=== PATIENT | male | born 1975 | race African-American/Black ===

== ENCOUNTER 2016-05-09 13:59 | Inpatient (IN) ==
[2016-05-09] MEDS ORDERED: INFLUENZA VIRUS VACCINE 0.5 ML SYRINGE IM ONE (15:43)
[2016-05-09] MEDS ORDERED: PNEUMOCOCCAL VACCINE (23 VALENT) 0.5 ML VIAL IM ONE (15:43)
[2016-05-09 17:26] LABS: Basophils % 0.5 % (0.0-0.8); Eosinophils # 0.5 10*3/uL (0.0-0.87); Eosinophils % 6.3 % (0.00-10.9); Hematocrit 44.7 VOL% (42.0-52.0); Immature Granulocytes % 0.2 %; Immature Granulocytes Absolute 0.02 #; Lymphocytes # 2.6 10*3/uL (1.4-4.0); Lymphocytes % 30.8 % (21.2-54.2); Mean Corpuscular HGB Conc 31.3 GM/DL (32-36); Mean Corpuscular Hemoglobin 26 PG (27-34); Mean Corpuscular Volume 82.3 FL (87-102); Mean Platelet Volume 9.6 FL (9.6-12.0); Monocytes # 0.5 10*3/uL (0.11-0.8); Monocytes % 5.6 % (1.7-12.7); Neutrophils # 4.7 10*3/uL (1.4-7.4); Neutrophils % 56.6 % (38.7-73.9); Platelet Count 275 T/CUMM (130-400); Red Blood Count 5.43 MC/CUMM (3.8-5.5); Red Cell Distribution Width 14.6 % (9.3-17.3); White Blood Count 8.4 T/CUMM (4-12)
[2016-05-09] MEDS: BISOPROLOL 5 MG TABLET PO SCH (17:33)
--- NOTE | 2016-05-09 17:35 | XRay Report ---
Exam: XR chest 2V Indication: Cardiomegaly, dyspnea Comparison study: None Findings: Cardiac silhouette is enlarged. There is also mild tortuosity of the descending thoracic aorta. There is no focal consolidation, pneumothorax or pleural effusion identified. Impression: No acute cardiopulmonary process. Cardiomegaly. PROCEDURE INTERPRETED AT [facility] DEPARTMENT OF RADIOLOGY Final Report Signed by: Joni Urbina
[2016-05-09 17:48] LABS: Blood Urea Nitrogen 10 MG/DL (7-18); Calcium 9.3 MG/DL (8.5-10.1); Glucose 86 MG/DL (74-106); Magnesium 1.8 MG/DL (1.8-2.4); Osmolality,Calculated 283.8 MOS/KG (273-304); Potassium 4.1 MMOL/L (3.5-5.1); Sodium 144 MMOL/L (136-145); Troponin I Only < 0.015 NG/ML (0.00-0.045)
[2016-05-09] MEDS: APIXABAN 5 MG TABLET PO SCH (20:25)
[2016-05-09] MEDS ORDERED: LACTULOSE 20 GM/30 ML UDCUP PO PRN (22:53)
[2016-05-09] MEDS ORDERED: MAGNESIUM SULF RIDER 2 GM in PREMIX 1 EACH IV PRN (22:53)
[2016-05-09] MEDS ORDERED: ACETAMINOPHEN 325 MG TABLET PO PRN (22:53)
[2016-05-09] MEDS ORDERED: MORPHINE 2 MG/1 ML SYRINGE IV PRN (22:53)
[2016-05-09] MEDS ORDERED: ZALEPLON 5 MG CAPSULE PO PRN (22:53)
[2016-05-09] MEDS ORDERED: MAGNESIUM SULF RIDER 4 GM in PREMIX 1 EACH IV PRN (22:53)
[2016-05-10 05:28] LABS: Risk Ratio 3.84; VLDL CHOLESTEROL 13.2 MG/DL
--- NOTE | 2016-05-10 08:15 | EKG Report ---
Stationary ECG Study [facility] Test Date: 05/10/2016 8:14:14 AM Pat Name: LOBO VIRGEN Department: Room: 263 Gender: M Account Director: TEREZA : 1975 Requested by: Juan Alonso Order Number: [id number] Reading MD: VANDA IBARRA Intervals [place] Rate: 98 P: 999 OK: 0 QRS: 59 QRSD: 100 T: 189 QT: 331 QTc: 386 Interpretive Statements ATRIAL FIBRILLATION WITH ABERRANT CONDUCTION OR VENTRICULAR PREMATURE COMPLEXES ST DEVIATION AND MODERATE T-WAVE ABNORMALITY, CONSIDER LATERAL ISCHEMIA Electronically Signed On 05-13-16 11:31:24 ACID MIXER by VANDA IBARRA [email or web address]
[2016-05-10] MEDS ORDERED: amLODIPine 10 MG TABLET PO SCH (09:00)
[2016-05-10] MEDS: APIXABAN 5 MG TABLET PO SCH ×2 (09:05→21:28)
[2016-05-10] MEDS: BISOPROLOL 5 MG TABLET PO SCH (09:05)
[2016-05-10] MEDS: DILTIAZEM 60 MG TABLET PO SCH ×3 (11:44→23:52)
--- NOTE | 2016-05-10 20:55 | ECHO Report ---
Dimitri Lopes Exam Date: 05/10/2016 10:38 Referring Physician: Technologist: Juanita SHAFER Age: 40 Ht (in): Wt (lb): Gender: M Exam Location: [facility] Echo Indications: dysnea on excertion, A fib, Cardiomyopathy, Obesity BP: / HR: Rhythm: Sinus Technical Quality: IMPRESSIONS Technically adequate study 2+ left atrial enlargement Borderline LV systolic function with ejection fraction estimated 50% without obvious wall motion abnormality 1-2+ eccentric mitral regurgitation 1+ tricuspid regurgitation with RVSP 21 mmHg plus RAP Rhythm strips suggest atrial fibrillation MEASUREMENTS (Male / Female) Normal Values 2D ECHO LV Diastolic Diameter PLAX 5.3 cm 4.2 - 5.9 / 3.9 - 5.3 cm LV Systolic Diameter PLAX 3.9 cm LV Fractional Shortening PLAX 25.4 % IVS Diastolic Thickness 1.3 cm 0.6 - 1.0 / 0.6 - 0.9 cm LVPW Diastolic Thickness 1.1 cm 0.6 - 1.0 / 0.6 - 0.9 cm RV Internal Dim ED PLAX 4.3 cm Aortic Root Diameter 3.0 cm LA Systolic Diameter LX 4.7 cm 3.0 - 4.0 / 2.7 - 3.8 cm DOPPLER TR Peak Velocity 229.0 cm/s TR Peak Gradient 21.0 mmHg FINDINGS Left Ventricle Mildly increased septal wall thickness. Mild - moderate concentric left ventricular hypertrophy. Left ventricular ejection fraction is estimated at Right Ventricle Moderately increased right ventricular size. Right Atrium Moderately increased right atrial size. Left Atrium Moderately increased left atrial diameter. Mitral Valve Mildly thickened mitral valve with moderate mitral regurgitation. Aortic Valve Aortic valve sclerosis without stenosis or regurgitation. Tricuspid Valve Morphologically normal tricuspid valve. Moderate tricuspid valve regurgitation. Tricuspid regurgitation velocities suggest a PAP of 21.0 mmHg + RAP. Pulmonic Valve Pulmonic valve not well visualized. Pericardium No pericardial effusion. Aorta Normal size aortic root and proximal ascending aorta. Abdullahi Chakraborty (Electronically Signed) Final Date: 10 May 2016 20:52
--- NOTE | 2016-05-10 21:59 | Cardiology History & Physical ---
I, Surekha Bello, SAM, am scribing for, and in the presence of, Juan Alonso MD 21:57. Assessment and Plan (1) Atrial fibrillation Status: Acute Assessment and plan: This seems to be a new onset of atrial fibrillation. He denies any contraindications to anticoagulation, Eliquis 5mg has been ordered for stroke prevention. I have also ordered a TSH. His reduced LVEF may be tachycardia induced cardiomyopathy. We'll try to control heart rate better. We will switch metoprolol to bisoprolol 5 mg by mouth twice a day, hopefully with better rate control. Will restart Cardizem if needed. So far his heart rate is better. We will discontinue amlodipine and use other medications for blood pressure such as MULUGETA inhibitor, possible Lasix Low TSH suggest hyperthyroidism. Maybe it is cause of his A. fib.[ check t4; may need referral to endocrinology] Other possible causes might be sleep apnea , obesity, hypertension, etc. With his cardiomyopathy and being young and atrial field and heart failure, have recommended to him that we do a heart catheter on Thursday. The risk and benefits were discussed with him. He agrees. Left heart catheter, angioplasty, or stent.. The risks, benefits, and alternatives for doing a left heart catheter and possible angioplasty or stent were discussed in detail with the patient. It includes but is not limited to a possibility of injury to vessel, abnormal heart rhythm, stroke, heart attack, need for emergency surgery, contrast reaction, restenosis, . . The patient voices understanding and wishes to proceed. [I, Dr. Juan Alonso, did see the patient on the day of 05/09/16 and was involved in the interview, examination, and management of this patient. I'm finishing the note at this point.] Current Visit: Yes (2) Hypertension Status: Chronic Assessment and plan: This seems to be well controlled. I have restarted his Norvasc. Current Visit: Yes (3) Obesity Status: Chronic Assessment and plan: Counseled patient on importance of weight loss. Current Visit: Yes (4) Former smoker Status: Resolved Assessment and plan: Patient tells me that he quit smoking 5 years ago. Current Visit: Yes (5) Dyspnea on exertion Status: Acute Assessment and plan: See plan of care listed above. Current Visit: Yes (6) Lower extremity edema Status: Acute Assessment and plan: See plan of care listed above. Current Visit: Yes (7) Cardiomyopathy Status: Acute Assessment and plan: This was diagnosed at [facility]. Has been ordered to further evaluate patient's cardiomyopathy. Current Visit: Yes (8) Low TSH level Status: Acute Current Visit: Yes (9) Hyperthyroidism Status: Acute Current Visit: Yes History of Present Illness Chief complaint: Atrial fib, lower extremity swelling, dyspnea on exertion History of present illness: Mr. Lopes is a 40 year old -[place] male without known coronary artery disease, not routinely followed by cardiology. He reports that he sees a nurse practitioner in [place] on a regular basis. He was a direct admit from [facility] for further evaluation of atrial fibrillation, dyspnea on exertion and lower extremity swelling. He has risk factors significant for obesity, sedentary lifestyle, former smoker (quit 5 years ago) and hypertension. He denies a significant family history of heart disease. He reports that he has never had a stress test or heart catheterization in the past. Patient denies any past history of atrial fibrillation. He was transferred from [facility]. He reports that he had been experiencing worsening dyspnea on exertion and lower extremity swelling for the past 3 weeks and decided to go for further evaluation. He tells me that he was diagnosed with congestive heart failure/cardiomyopathy at [facility] and was admitted at that time. He has been inpatient at [facility] since last Thursday. He has been treated with Lasix and he reports that this has helped his breathing. He tells me that today he had an episode of ventricular tachycardia and atrial fibrillation with rapid ventricular response. He was then transferred to our facility for further workup and evaluation. After reviewing records from [facility], he was noted to be in atrial fibrillation with a rapid ventricular response upon admission. He was treated with Cardizem and metoprolol. This seemed to control his rate well. He had a BNP of 793 at that time and was diuresed with Lasix. It appears that he had an 8 beat run of ventricular tach at 6:00 this morning. We will continue to monitor him on the monitoring manager. Patient was seen and examined on telemetry. He remains in atrial fibrillation with a controlled ventricular response, heart rate in the 90s. He is in no acute distress. Patient denies chest pain, nausea, vomiting, palpitations, abdominal pain, arm pain and lightheadedness. He tells me that he cannot tell that he is in an irregular rhythm. He does however report worsening dyspnea on exertion and lower extremity edema over the past 3 weeks. He tells me that his edema has gotten better. However, he continues to have 2+ edema to his lower extremities. He also reports worsening activity intolerance at work. He tells me that he cannot do the things that he still could do at work without becoming short of breath. We will order an echo and to evaluate patient's cardiomyopathy. Cardiac biomarkers and EKG has also been ordered. BNP has been ordered to review. BMP, CBC, and TSH have also been ordered for review. Patient denies past history of hemorrhagic stroke, GI bleed, frequent falls and other contraindications to anticoagulation. The patient's arrhythmias, worsening dyspnea on exertion and activity intolerance could possibly be secondary to coronary artery disease. Therefore, we will plan to do a heart catheterization this admission in order to definitively rule this out. Home Medications Medication Instructions Recorded Confirmed Type Amlodipine Besylate [Amlodipine 10 mg PO DAILY 05/09/16 05/09/16 History Besylate] Allergies Allergy/AdvReac Type Severity Reaction Status Date / Time No Known Allergies Allergy Verified 05/09/16 15:44 - Constitutional Constitutional: Present: weight gain. Absent: chills, fatigue, fever(s), frequent falls, headache(s), malaise, weakness - Cardiovascular Cardiovascular: Present: dyspnea on exertion, edema. Absent: chest pain at rest , chest pain with activity, claudication, diaphoresis, radiating jaw, neck or arm pain, lightheadedness, orthopnea, palpitations, PND - Respiratory Respiratory: Present: dyspnea on exertion. Absent: cough, wheezing, snoring, pain on inspiration, change in phlegm color - Gastrointestinal Gastrointestinal: Absent: abdominal pain, change in bowel habits, constipation, diarrhea, dysphagia, heartburn, melena, nausea, vomiting - Psychiatric Psychiatric: Absent: anxiety, depression, panic attacks Medical,Surgical,& Family Hx - Medical History Cardio: History of: Hypertension - Surgical History Orthopedic Surgeries: Surgical HX of;: Orthopedic Surgery (right ankle fx - metal plate) - Family History Family History: Reports;: Family Cancer (lung ca mother), Family Diabetes ( mother), Family Hypertension (mother) Denies;: Family Heart Disease Comment Only: Additional Family History (father when pt was 1 years old , doesnt know his history) - Social History Smoking Status: Former smoker Frequency of Alcohol Use: Occasionally Type of Drug Use: None Cardiology Physical Exam - Constitutional Vitals: Vital Signs Temp Pulse Resp BP Pulse Ox 97.4 F L 76 20 132/85 99 05/09/16 15:33 05/09/16 15:33 05/09/16 15:33 05/09/16 15:33 05/09/16 15:33 Intake and Output 05/09/16 05/09/16 05/09/16 06:59 14:59 22:59 Other: Weight 315 lb Patient Weight 05/10/16 06:59 Weight 315 lb General appearance: no acute distress, morbidly obese - Head Head exam: Present: normal inspection, normocephalic, atraumatic - Respiratory Respiratory exam: Present: clear to auscultation bilaterally. Absent: accessory muscle use, chest wall tenderness, rales, rhonchi, stridor, wheezes - Cardiovascular Cardiovascular exam: Present: irregular rhythm. Absent: gallop, JVD, rubs, systolic murmur - GI/Abdominal GI/Abdominal exam: Present: normal bowel sounds, soft. Absent: mass, tenderness - Extremities Exam Extremities exam: Present: normal capillary refill, edema (2+ bilateral lower extremity edema). Absent: calf tenderness - Neurological Exam Neurological exam: Present: alert, oriented X3, normal gait - Psychiatric Psychiatric exam: Present: normal affect, normal mood. Absent: agitated, anxious, depressed - Skin Skin exam: Present: normal color, warm, dry Result/EKG - Labs CBC & BMP: 05/09/16 16:58 05/09/16 16:58 Lab Results: I have reviewed the past 24 hour labs Labs: Laboratory Results - last 24 hr 05/10/16 03:20 Triglycerides 66 Cholesterol 119 LDL Cholesterol 75.0 VLDL Cholesterol 13.2 HDL Cholesterol 31 L Heart Disease Risk Ratio 3.84 - EKG EKG results: interpreted by me EKG shows: atrial fibrillation ICeleste Dale, MD, personally performed the services described in this documentation, ascribed by Surekha Bello RN in my presence, and it is both accurate and complete .
--- NOTE | 2016-05-10 22:00 | Cardiology Progress Note ---
Assessment and Plan (1) Atrial fibrillation Status: Acute Assessment and plan: This seems to be a new onset of atrial fibrillation. He denies any contraindications to anticoagulation, Eliquis 5mg has been ordered for stroke prevention. I have also ordered a TSH. His reduced LVEF may be tachycardia induced cardiomyopathy. We'll try to control heart rate better. We will switch metoprolol to bisoprolol 5 mg by mouth twice a day, hopefully with better rate control. Will restart Cardizem if needed. So far his heart rate is better. We will discontinue amlodipine and use other medications for blood pressure such as MULUGETA inhibitor, possible Lasix Low TSH suggest hyperthyroidism. Maybe it is cause of his A. fib.[ check t4; may need referral to endocrinology] Other possible causes might be sleep apnea , obesity, hypertension, etc. With his cardiomyopathy and being young and atrial field and heart failure, have recommended to him that we do a heart catheter on Thursday. The risk and benefits were discussed with him. He agrees. Left heart catheter, angioplasty, or stent.. The risks, benefits, and alternatives for doing a left heart catheter and possible angioplasty or stent were discussed in detail with the patient. It includes but is not limited to a possibility of injury to vessel, abnormal heart rhythm, stroke, heart attack, need for emergency surgery, contrast reaction, restenosis, . . The patient voices understanding and wishes to proceed. 05/10/16-plan/recommendations: Heart rate remains elevated. We'll add diltiazem 60 mg by mouth every 6 hours. Hold if pulse less than 50 at the dose. LDL is okay but low HDL. We'll add low-dose of MULUGETA inhibitor because of his LV systolic dysfunction, LVEF 40% by recent echo. He remains okay with a heart catheter on Thursday. BMP every morning 3 with starting the MULUGETA inhibitor. Current Visit: Yes (2) Hypertension Status: Chronic Assessment and plan: This seems to be well controlled. I have restarted his Norvasc. Current Visit: Yes (3) Obesity Status: Chronic Assessment and plan: Counseled patient on importance of weight loss. Current Visit: Yes (4) Former smoker Status: Resolved Assessment and plan: Patient tells me that he quit smoking 5 years ago. Current Visit: Yes (5) Dyspnea on exertion Status: Acute Assessment and plan: See plan of care listed above. Current Visit: Yes (6) Lower extremity edema Status: Acute Assessment and plan: See plan of care listed above. Current Visit: Yes (7) Cardiomyopathy Status: Acute Assessment and plan: This was diagnosed at [facility]. Has been ordered to further evaluate patient's cardiomyopathy. Current Visit: Yes (8) Low TSH level Status: Acute Current Visit: Yes (9) Hyperthyroidism Status: Acute Current Visit: Yes (10) Low HDL (under 40) Status: Acute Current Visit: Yes (11) Systolic dysfunction, left ventricle Status: Acute Current Visit: Yes (12) Systolic dysfunction with heart failure Status: Acute Current Visit: Yes Cardiology - PN: Subj Interval history: no cp ; less sob; Exam (Progress Note) - Constitutional Vitals: Period Temp Pulse Resp BP Sys/Rhodes Pulse Ox Last 24 Hr 96.9 F-98.3 F 88-103 16-20 118-129/61-80 93-98 Exam: No JVD or neck bruit HEENT: PERRLA Cardiac: irRegularly irregular rhythm and rate with normal s1/S2. Lungs: Clear to auscultation Abdomen: Without organomegaly Spine/extremities: No clubbing, cyanosis, or edema. Neurononfocal Psychno vegetative signs of depression or anxiety lower extremity pulses are 3-4 + Result/EKG - Labs CBC & BMP: 05/09/16 16:58 05/09/16 16:58 Lab Results: I have reviewed the past 24 hour labs Labs: Laboratory Results - last 24 hr 05/10/16 03:20 Triglycerides 66 Cholesterol 119 LDL Cholesterol 75.0 VLDL Cholesterol 13.2 HDL Cholesterol 31 L Heart Disease Risk Ratio 3.84 - EKG EKG results: interpreted by me
[2016-05-10] MEDS: CAPTOPRIL 6.25 MG TABLET PO SCH (23:52)
[2016-05-11 04:55] LABS: Calcium 8.7 MG/DL (8.5-10.1); Free T4 (Free Thyroxine) 2.76 NG/DL (0.76-1.46); Osmolality,Calculated 284.8 MOS/KG (273-304); Potassium 4.1 MMOL/L (3.5-5.1)
[2016-05-11] MEDS: DILTIAZEM 60 MG TABLET PO SCH ×3 (06:20→18:34)
[2016-05-11] MEDS ORDERED: FUROSEMIDE 20 MG TABLET PO SCH (09:00)
[2016-05-11] MEDS: BISOPROLOL 5 MG TABLET PO SCH (09:06)
[2016-05-11] MEDS: CAPTOPRIL 6.25 MG TABLET PO SCH ×3 (09:06→21:26)
[2016-05-11] MEDS ORDERED: MAGNESIUM SULF RIDER 2 GM in PREMIX 1 EACH IV PRN (18:54)
[2016-05-11] MEDS ORDERED: POTASSIUM CHLORIDE RIDER 10 MEQ in PREMIX 1 EACH IV PRN (18:54)
--- NOTE | 2016-05-11 19:01 | Cardiology Progress Note ---
Assessment and Plan (1) Atrial fibrillation Status: Acute Assessment and plan: This seems to be a new onset of atrial fibrillation. He denies any contraindications to anticoagulation, Eliquis 5mg has been ordered for stroke prevention. I have also ordered a TSH. His reduced LVEF may be tachycardia induced cardiomyopathy. We'll try to control heart rate better. We will switch metoprolol to bisoprolol 5 mg by mouth twice a day, hopefully with better rate control. Will restart Cardizem if needed. So far his heart rate is better. We will discontinue amlodipine and use other medications for blood pressure such as MULUGETA inhibitor, possible Lasix Low TSH suggest hyperthyroidism. Maybe it is cause of his A. fib.[ check t4; may need referral to endocrinology] Other possible causes might be sleep apnea , obesity, hypertension, etc. With his cardiomyopathy and being young and atrial field and heart failure, have recommended to him that we do a heart catheter on Thursday. The risk and benefits were discussed with him. He agrees. Left heart catheter, angioplasty, or stent.. The risks, benefits, and alternatives for doing a left heart catheter and possible angioplasty or stent were discussed in detail with the patient. It includes but is not limited to a possibility of injury to vessel, abnormal heart rhythm, stroke, heart attack, need for emergency surgery, contrast reaction, restenosis, . . The patient voices understanding and wishes to proceed. 05/10/16-plan/recommendations: Heart rate remains elevated. We'll add diltiazem 60 mg by mouth every 6 hours. Hold if pulse less than 50 at the dose. LDL is okay but low HDL. We'll add low-dose of MULUGETA inhibitor because of his LV systolic dysfunction, LVEF 40% by recent echo. He remains okay with a heart catheter on Thursday. BMP every morning 3 with starting the MULUGETA inhibitor. 05/11/16-plan/recommendation: His blood pressure is better with adding MULUGETA inhibitor and furosemide. It would also treat his heart failure. His heart rate is better but not quite to goal. Will increase the diltiazem to 90 mg p.o. every 6 hours. Continue the bisoprolol. He will be for heart catheterization tomorrow. Precath orders are entered in the computer. He denied discussed activity. He could go back to work and light work in 2 weeks or so after the cath. I suggested he wait at least a month prior to doing planned exercise. At that point, hopefully his LV function will be improved with control of his heart rate. We will see how he responds to that stress. I will probably see him back in 3 or 4 weeks after his cath. Current Visit: Yes (2) Hypertension Status: Chronic Assessment and plan: This seems to be well controlled. I have restarted his Norvasc. Current Visit: Yes (3) Obesity Status: Chronic Assessment and plan: Counseled patient on importance of weight loss. Current Visit: Yes (4) Former smoker Status: Resolved Assessment and plan: Patient tells me that he quit smoking 5 years ago. Current Visit: Yes (5) Dyspnea on exertion Status: Acute Assessment and plan: See plan of care listed above. Current Visit: Yes (6) Lower extremity edema Status: Acute Assessment and plan: See plan of care listed above. Current Visit: Yes (7) Cardiomyopathy Status: Acute Assessment and plan: This was diagnosed at [facility]. Has been ordered to further evaluate patient's cardiomyopathy. Current Visit: Yes (8) Low TSH level Status: Acute Current Visit: Yes (9) Hyperthyroidism Status: Acute Current Visit: Yes (10) Low HDL (under 40) Status: Acute Current Visit: Yes (11) Systolic dysfunction, left ventricle Status: Acute Current Visit: Yes (12) Systolic dysfunction with heart failure Status: Acute Current Visit: Yes Cardiology - PN: Subj Interval history: No chest pain. Less shortness of breath. Exam (Progress Note) - Constitutional Vitals: Period Temp Pulse Resp BP Sys/Rhodes Pulse Ox Last 24 Hr 97.3 F-98.6 F 80-98 18-20 105-151/69-94 93-99 Exam: No JVD or neck bruit HEENT: PERRLA Cardiac: irRegularly irregular rhythm and rate with normal s1/S2. Lungs: Clear to auscultation Abdomen: Without organomegaly Spine/extremities: No clubbing, cyanosis, or edema. Neurononfocal Psychno vegetative signs of depression or anxiety lower extremity pulses are 3-4 + Result/EKG - Labs CBC & BMP: 05/09/16 16:58 05/11/16 04:09 Lab Results: I have reviewed the past 24 hour labs Labs: Laboratory Results - last 24 hr 05/11/16 04:09 Sodium 144 Potassium 4.1 Chloride 106 Carbon Dioxide 27 Anion Gap 15.1 H BUN 11 Creatinine 0.70 GFR Calculation 192 BUN/Creatinine Ratio 15.00 Glucose 91 Calculated Osmolality 284.8 Calcium 8.7 Free T4 2.76 H Specialty Discharge - Follow Up or Referrals Follow up with: Juan Alonso MD [Physician] -
--- NOTE | 2016-05-11 19:03 | History and Physical Update ---
Sedation H&P Update - History and Physical H&P was reviewed, the patient examined and there: are no changes in the patients condition since last H&P was completed. - Dictation Physical: refer to H&P completed by admitting physician - Physical Exam Mental Status: alert and oriented Heart: regular rate and rhythm Lung: clear to auscultation Abdomen: within normal limits Vitals: within normal limits - Sedation Plan for Sedation: minimal Patient Consent: Procedure disscussed with patient and patinet has consented., Risks and benefits were discussed with patient,including infection,, bleeding, injury to surrounding structures, seizure, temporary nerve, Patient understands and accepts potential risks/benefits and agrees to, proceed. ASA Class: II Airway Assessment: Class III: Soft palate, base of uvula visible
[2016-05-12] MEDS: DILTIAZEM 90 MG TABLET PO SCH ×2 (01:35→06:51)
[2016-05-12] MEDS ORDERED: DIAZEPAM 5 MG TABLET PO ONE (06:00)
[2016-05-12] MEDS ORDERED: SODIUM CHLORIDE 0.9% 1,000 ML IV SCH (06:00)
[2016-05-12] MEDS ORDERED: diphenhydrAMINE CAP 25 MG CAPSULE PO ONE (06:00)
[2016-05-12 06:41] LABS: Calcium 9.1 MG/DL (8.5-10.1); Osmolality,Calculated 286.7 MOS/KG (273-304); Potassium 4.2 MMOL/L (3.5-5.1)
[2016-05-12] MEDS: BISOPROLOL 5 MG TABLET PO SCH ×2 (06:51→09:54)
[2016-05-12] MEDS: CAPTOPRIL 6.25 MG TABLET PO SCH ×2 (06:51→09:54)
[2016-05-12] MEDS ORDERED: MEPERIDINE 25 MG/1 ML VIAL ONE ×2 (07:47→08:29)
[2016-05-12] MEDS ORDERED: MIDAZOLAM 2 MG/2 ML VIAL ONE (07:48)
[2016-05-12] MEDS ORDERED: HEPARIN 5,000 UNIT/1 ML VIAL ONE (08:13)
[2016-05-12] MEDS ORDERED: LIDOCAINE 1% 20 ML VIAL ONE (08:27)
--- NOTE | 2016-05-12 08:57 | Operative Note ---
Date of procedure: 05/12/16 Procedure Preformed: Left heart cath Coronary angiography Left ventriculography Angiogram of the right femoral artery--by follow-through from [facility] Angio-Seal of the right femoral artery-successful Surgeon / Physician: Juan Alonso Medical Staff Coordinator: Epifanio Martin Post-op diagnosis: same (Cardiomyopathy, heart failure, atrial fibrillation, risk factors for coronary disease) Findings: Impression: No significant coronary disease-minimal luminal irregularities Moderate global LV systolic function, LVEF is 40% Mild LV enlargement Moderate elevation of LVEDP, 20 mmHg Angio-Seal right femoral artery-successful Plan/recommendations: The patient will have risk factors optimized. His cardiomyopathy is not dizzy CAD. My suspicion is that is due to his A. fib RVR for greater than a week. Other possibilities could be considered such as a viral etiology, hypertension, or other causes. I will could consider putting him on a low-dose of statin for his lipids, low HDL. I will consider simvastatin 10 mg nightly. The patient will be on anticoagulant, Eliquis 5 g p.o. twice daily for now. I will change his Cardizem to Cardizem CD 360 mg p.o. daily. He will continue bisoprolol 5 mg p.o. twice daily. This combination is controlled his heart rate. He will be watched overnight. He probably discharged tomorrow. Eliquis, 5 mg p.o. twice daily, will be started in about 5 days to allow him to completely seal his right femoral artery puncture site. He will be allowed to return to work in about 2 weeks. He will not do significant physical exercise for the next 4 weeks. Soon after that, we can have him start increasing physical activity I will see him in about 4-6 weeks. I can see him sooner should problems arise. He is to try, very hard, to diet and lose weight. We will see him back, will consider elective cardioversion, after he has been on anticoagulation patient for at least 4 weeks. Follow-up will be scheduled. My post-cath check to Addenda: I saw the patient post-cath. the groin puncture site and distal pulse are stable. vital signs are stable and the patient will be observed closely overnight. Specimens: none sent Estimated blood loss: minimal Condition: stable Anesthesia: local, conscious sedation Disposition: floor
--- NOTE | 2016-05-12 11:38 | Cardiology Operative Report ---
Date of Procedure:: 05/12/16 Post-op diagnosis: same (Cardiomyopathy, heart failure, atrial fibrillation, risk factors for coronary disease) Procedure: Date of procedure: 05/12/16 Procedure Preformed: Left heart cath Coronary angiography Left ventriculography Angiogram of the right femoral artery--by follow-through from [facility] Angio-Seal of the right femoral artery-successful Surgeon / Physician: Juan Alonso Scouring Pads Supervisor: Epifanio Martin Post-op diagnosis: same (Cardiomyopathy, heart failure, atrial fibrillation, risk factors for coronary disease) procedure: The patient was prepped and draped in usual manner. Entered the right femoral artery via the Seldinger technique. I used a sheath and then used a JL4 and engaged left coronary. Multiple views were taken. I then exchanged for a JR4. Multiple views of the right coronary were taken. I then exchanged for an angled pigtail. I crossed the valve. Left ventricular end-diastolic pressures measured. Left ventriculography was done. Left ventricle pullback was done. The catheters were then removed from the patient. Please see the cath data sheets for the details of catheters used. Complications: None Hemodynamic data: LVEDP was 20 mmHg. Angiographic data: The left main coronary was large and had minimal luminal irregularities. The left anterior descending artery was large and had minimal luminal irregularities. The left circumflex system was moderate to large. there are minimal luminal irregularities in the circumflex The right coronary artery was large in size, dominant vessel with the PDA. there were minimal luminal irregularities. There are moderate tortuosities in all of the Vessels, distally. GUZMAN left ventriculography revealed moderate reduction global systolic function. Overall ejection fraction about 40%. There was mild LV enlargement. Angiogram of the right femoral artery revealed the puncture site to be in a large vessel, above the bifurcation. It was suitable for Angio-Seal. Findings: Impression: No significant coronary disease-minimal luminal irregularities Moderate global LV systolic function, LVEF is 40% Mild LV enlargement Moderate elevation of LVEDP, 20 mmHg Angio-Seal right femoral artery-successful Plan/recommendations: The patient will have risk factors optimized. His cardiomyopathy is not dizzy CAD. My suspicion is that is due to his A. fib RVR for greater than a week. Other possibilities could be considered such as a viral etiology, hypertension, or other causes. I will could consider putting him on a low-dose of statin for his lipids, low HDL. I will consider simvastatin 10 mg nightly. The patient will be on anticoagulant, Eliquis 5 g p.o. twice daily for now. I will change his Cardizem to Cardizem CD 360 mg p.o. daily. He will continue bisoprolol 5 mg p.o. twice daily. This combination is controlled his heart rate. He will be watched overnight. He probably discharged tomorrow. Eliquis, 5 mg p.o. twice daily, will be started in about 5 days to allow him to completely seal his right femoral artery puncture site. He will be allowed to return to work in about 2 weeks. He will not do significant physical exercise for the next 4 weeks. Soon after that, we can have him start increasing physical activity I will see him in about 4-6 weeks. I can see him sooner should problems arise. He is to try, very hard, to diet and lose weight. We will see him back, will consider elective cardioversion, after he has been on anticoagulation patient for at least 4 weeks. Follow-up will be scheduled. My post-cath check to Addenda: I saw the patient post-cath. the groin puncture site and distal pulse are stable. vital signs are stable and the patient will be observed closely overnight. Specimens: none sent Estimated blood loss: minimal Condition: stable Anesthesia: local, conscious sedation Disposition: floor Additional CC's: Alexsander Alonso Anesthesia: local, minimal conscious sedation Surgeon / Physician: Juan Alonso Estimated blood loss: minimal Specimens: none sent Condition: stable Disposition: floor
[2016-05-12] MEDS: LISINOPRIL 2.5 MG TABLET PO SCH (11:55)
[2016-05-12] MEDS: DILTIAZEM CD 180 MG CAPSULE PO SCH (11:59)
--- NOTE | 2016-05-12 15:31 | Discharge Summary ---
Addendum entered and electronically signed by Dennise Em NP 05/13/16 10: 44: Patient's lab reveals a hyperthyroid state. At this point, methimazole 5 mg orally daily will be started. We will have him follow-up with his primary care provider regarding continued management. Original Note: <Dennise Em - Last Filed: 05/13/16 09:37> Hospital Course - Hospital Course Hospital Course: Mr. Lopes is a 40 year old -[place] male without known coronary artery disease, not routinely followed by cardiology until this admission. Dr Alonso admitted Mr. Lopes. He was a direct admit from [facility] for further evaluation of atrial fibrillation, dyspnea on exertion and lower extremity swelling. He has risk factors significant for obesity, sedentary lifestyle, former smoker (quit 5 years ago) and hypertension. He denies a significant family history of heart disease. After reviewing records from [facility], he was noted to be in atrial fibrillation with a rapid ventricular response upon admission. He was treated with Cardizem and metoprolol. This seemed to control his rate well. He had a BNP of 793 at that time and was diuresed with Lasix. He did have a brief run of ventricular tachycardia during hospital stay. Treated for acute CHF, secondary to LVEF 40%. Initially NYHA Class III on admission, NYHA Class I-II at discharge. Because patient had arrhythmias, worsening dyspnea on exertion and activity intolerance he underwent elective cardiac catheterization 05/12/2016, performed by Dr. Alonso, with the following impression noted: Impression: No significant coronary disease-minimal luminal irregularities Moderate global LV systolic function, LVEF is 40% Mild LV enlargement Moderate elevation of LVEDP, 20 mmHg Angio-Seal right femoral artery-successful Plan/recommendations: The patient will have risk factors optimized. His cardiomyopathy is not from ischemic CAD. It is suspected that his CM is related to atrial fibrillation with RVR for greater than one week. Patient tolerated the heart catheterization well and without complication and was returned to telemetry unit in stable condition. Overnight, he has done well. He denies chest pain, heaviness, tightness. Breathing is stable. He has been ambulating without difficulty. Right femoral arterial puncture site free of hematoma or bruit. Having felt he met maximal medical therapy, patient is being discharged home in stable condition. He is being given a follow-up appointment with Dr. Alonso for 4-6 weeks. Discharge medications include the following: Simvastatin 10 mg nightly. Eliquis 5 g p.o. twice daily - start Wednesday, May 18, 2016 Cardizem CD 360 mg p.o. daily. He will continue bisoprolol 5 mg p.o. daily. Lisinopril 2.5mg orally daily He will be allowed to return to work in about 2 weeks. He will not do aggressive physical exercise for the next 4 weeks. Soon after that, we can have him start increasing physical activity. Dr. Alonso will see him in clinic in 4-6 weeks with labs but may be seen sooner should problems arise. He states he will aggressively try to diet and lose weight. When returns to cardiology clinic, may consider elective cardioversion, after he has been on anticoagulation patient for at least 4 weeks. - Time spent with patient Time with patient DS: Greater than 30 minutes Diagnosis - Discharge Diagnosis (1) NICM (nonischemic cardiomyopathy) Status: Chronic (2) Atrial fibrillation Status: Chronic (3) Dyspnea on exertion Status: Chronic (4) Lower extremity edema Status: Resolved (5) Systolic dysfunction with heart failure Status: Chronic (6) Hypertension Status: Chronic (7) Obesity Status: Chronic Specialty Discharge - Follow Up or Referrals Follow up with: Juan Alonso MD [Physician] - 06/16/16 2:50 pm Discharge Plan - Discharge Data Disposition: Disch To Home/Self Care Condition at Discharge: Stable Discharge Diet: heart healthy Activity: other (post-cath expectations) Hygiene: no restrictions Weight Bearing at Discharge: other (post-cath expectations) Driving: other (post-cath expectations) Contact your physician if you experience:: fever over 101, Difficulty voiding, Redness or swelling, Nausea/Vomiting, Shortness of breath, Bleeding, pain uncontrolled by pain medications - Discharge Medications New methIMAzole [Methimazole] 5 mg PO DAILY #30 tablet Continue Apixaban [Eliquis] 5 mg PO BID #60 tablet Discontinued Amlodipine Besylate [Amlodipine Besylate] 10 mg PO DAILY - Follow Up or Referral Follow Up: Juan Alonso MD [Physician] - 06/16/16 2:50 pm - Forms/Instructions Instructions: Left Heart Catheterization (DC), Chronic Hypertension (DC) Additional Discharge Instructions: Needs BMP, Mg, CBC at clinic appointment with Dr. Alonso. Also needs 12 lead EKG at visit. Also, please instruct patient to start Eliquis Thursday morning, May 18, 2016 Exam - Constitutional Vitals: Period Temp Pulse Resp BP Sys/Rhodes Pulse Ox Last 24 Hr 96.7 F-98.4 F 86-99 18-20 115-149/67-87 94-99 Exam: General: Appears well with no apparent distress. Pleasant and cooperative. Appears comfortable. HEENT: PERRL, normocephalic, atraumatic. Mucous membranes moist. No jaundice noted. Conjunctiva moist and clear, sclerae anicteric Neck: No JVD/HJR, no thyromegaly or lymphadenopathy noted. No carotid bruit appreciated Cardiac: Regular rate and rhythm. No murmur rub or gallop. Lungs: Clear to auscultation without accessory muscle use to assist the respiratory pattern. Not requiring oxygen Abdomen: Soft, bowel sounds normoactive. Nontender and nondistended. No abdominal bruit or thrill noted. No masses noted. Musculoskeletal: No fluid collection. Decreased range of motion is noted. Extremities: Right groin free of hematoma or bruit No clubbing, cyanosis noted. No edema noted. Upper extremity pulses 2+. Lower extremity pulses 2+. Capillary refill less than 3 seconds. Skin: No unusual lesions or rashes. No skin breakdown appreciated. Neuro: Awake, alert and oriented 3. Moves all extremities well without hemiparesis or paralysis. No essential tremor is appreciated. Discharge Results Labs on day of discharge: Labs from last 24 hours 05/13/16 05/13/16 05/13/16 04:54 04:54 04:54 WBC 7.2 RBC 5.03 Hgb 13.1 L Hct 40.9 L MCV 81.3 L MCH 26 L MCHC 32.0 RDW 14.5 Plt Count 210 D MPV 9.5 L Neut % (Auto) 53.1 Lymph % (Auto) 34.0 Curry % (Auto) 6.5 Eos % (Auto) 5.7 Baso % (Auto) 0.4 Neut # (Auto) 3.8 Lymph # (Auto) 2.5 Curry # (Auto) 0.5 Eos # (Auto) 0.4 Baso # (Auto) 0.0 Immature Gran % 0.3 Nucleated RBC % 0.0 Immature Gran # 0.02 Nucleated RBCs # 0.00 Sodium 143 143 Potassium 4.6 4.6 Chloride 108 H 108 H Carbon Dioxide 25 25 Anion Gap 14.6 14.6 BUN 11 11 Creatinine 0.70 0.60 L GFR Calculation 193 205 BUN/Creatinine Ratio 15.00 18.00 Glucose 85 90 Calculated Osmolality 282.0 283.0 Calcium 8.9 9.0 Magnesium 1.8 - Imaging and Cardiology Cardiology Procedure: report reviewed by me Procedure: Chest x-ray: report reviewed by me DS: Provider Date of admission: 05/09/16 22:53 Primary care physician: Alexsander Del Valle MD Attending physician on admission: Juan Alonso MD Discharging clinician: Dennise Em NP Expected date of discharge: 05/13/16 <Samuel Ibrahim - Last Filed: 05/13/16 11:00> Discharge Plan - Forms/Instructions Additional Discharge Instructions: Start Eliquis 5 mg bid today
[2016-05-12] MEDS ORDERED: SIMVASTATIN 10 MG TABLET PO SCH (21:00)
[2016-05-13 05:34] LABS: Basophils % 0.4 % (0.0-0.8); Eosinophils # 0.4 10*3/uL (0.0-0.87); Eosinophils % 5.7 % (0.00-10.9); Hematocrit 40.9 VOL% (42.0-52.0); Hemoglobin 13.1 GM/DL (14.0-18.0); Immature Granulocytes % 0.3 %; Immature Granulocytes Absolute 0.02 #; Lymphocytes # 2.5 10*3/uL (1.4-4.0); Mean Corpuscular Hemoglobin 26 PG (27-34); Mean Corpuscular Volume 81.3 FL (87-102); Mean Platelet Volume 9.5 FL (9.6-12.0); Monocytes # 0.5 10*3/uL (0.11-0.8); Monocytes % 6.5 % (1.7-12.7); Neutrophils # 3.8 10*3/uL (1.4-7.4); Neutrophils % 53.1 % (38.7-73.9); Platelet Count 210 T/CUMM (130-400); Red Blood Count 5.03 MC/CUMM (3.8-5.5); Red Cell Distribution Width 14.5 % (9.3-17.3); White Blood Count 7.2 T/CUMM (4-12)
[2016-05-13 06:05] LABS: Potassium 4.6 MMOL/L (3.5-5.1)
[2016-05-13 06:07] LABS: Calcium 8.9 MG/DL (8.5-10.1); Magnesium 1.8 MG/DL (1.8-2.4); Potassium 4.6 MMOL/L (3.5-5.1)
[2016-05-13] MEDS: LISINOPRIL 2.5 MG TABLET PO SCH (08:45)
[2016-05-13] MEDS: BISOPROLOL 5 MG TABLET PO SCH (08:45)
[2016-05-13] MEDS: DILTIAZEM CD 180 MG CAPSULE PO SCH (08:46)
[2016-05-13 12:06] VITALS: BP 126/85
== END 2016-05-13 12:25 | disposition home or self-care (01) | DRG 286 ==
LOC: N.TELES 15:18 → INTOOBSV 15:18 → OBSVTOIN 22:53
PROVIDERS: ADMIT Internal Medicine Cardiovascular Disease; ATTEND Internal Medicine Cardiovascular Disease
PROC: CLCCHCL (ICD-10-PCS; 2016-05-12 08:15)